=== PATIENT | female | born 1995 | race Caucasian/White ===

== ENCOUNTER 2017-08-18 09:54 | Inpatient (IN) | payer BC ==
[~2017-08-18] VITALS: Ht 160 cm; Wt 78.7 kg
[2017-08-18] MEDS: LACTATED RINGER'S 1,000 ML IV SCH (01:57)
[~2017-08-18 09:54] MED LIST: OXYTOCIN 30 UNITS/LR 500 ML BAG IV ONE; PREN-39 PO
[2017-08-18 10:23] VITALS: Ht 160 cm; Wt 78.7 kg
[2017-08-18 10:24] VITALS: BP 113/76; PULSE 81; RESP 18
[2017-08-18] MEDS ORDERED: LACTATED RINGER'S 1,000 ML IV SCH (10:27)
[2017-08-18] MEDS ORDERED: OXYTOCIN 30 UNITS/LR 500 ML IV SCH (10:30)
[2017-08-18] MEDS ORDERED: MISOPROSTOL 200 MCG TAB PR PRN ×2 (10:30→18:00)
[2017-08-18] MEDS ORDERED: METHYLERGONOVINE 0.2 MG INJ IM PRN ×2 (10:30→18:00)
[2017-08-18] MEDS ORDERED: CARBOPROST 250 MCG INJ IM PRN ×2 (10:30→18:00)
[2017-08-18] MEDS ORDERED: OXYTOCIN 30 UNITS/LR 500 ML IV PRN ×2 (10:30→18:00)
--- NOTE | 2017-08-18 11:18 | HP ---
Date/Time of Note Date/Time of Note DATE: 08/18/17 TIME: 11:16 OB - History Hx of Present Chief Complaint: scheduled c/s Estimated Due Date: Aug 25, 2017 : 3 Para: 1 Spontaneous : 1 Therapeutic : 0 Care: Good Care Ultrasounds: Normal mid trimester US Obstetrical Complications: None Medical Complications: None Past Family/Social History * Past Medical, Surgical, Family and Obstetric Histories reviewed from chart. GBS Status: Negative OB Admission Exam Vital Signs Vital Signs Vital Signs Date Time Temp Pulse Resp B/P Pulse Ox O2 Delivery O2 Flow Rate FiO2 08/18/17 10:24 98.1 81 18 113/76 Room Air Physical Exam HEENT: WNL Heart: Rhythm Normal Lungs: Clear, Equal Abdomen: WNL Extremities: Normal Reflexes: Normal Heart Rate: 130's Accelerations: Accelerations Present Decelerations: No Decelerations Varibility: Moderate OB Assessment/Plan Reason for admission: section Other Assessment: 39 weeks with previous c/s. Plan: Section MARQUIS DAO MD Aug 18, 2017 11:18
[2017-08-18] MEDS ORDERED: CEFAZOLIN 2 GM/50 ML (PMX) 50 ML IVPB ONE (12:04)
[2017-08-18] MEDS ORDERED: ONDANSETRON 4 MG INJ ONE (13:54)
[2017-08-18] MEDS ORDERED: OXYTOCIN 10 UNIT INJ ONE (13:54)
[2017-08-18] MEDS ORDERED: PHENYLephrine (100 MCG/ML) 5ML SYG ONE (13:55)
[2017-08-18] MEDS ORDERED: morphine SULFATE/PF (10 MG/10 ML) INJ ONE (13:55)
[2017-08-18] MEDS ORDERED: FENTAnyl 50 MCG/ML VIAL ONE (14:30)
--- NOTE | 2017-08-18 15:12 | SIPON ---
Date/Time of Note Date/Time of Note DATE: 08/18/17 TIME: 15:10 Operative Report Preoperative Diagnosis Previous c/s Postoperative Diagnosis Same Operation/Procedure Performed Repeat c/s Surgeon Marquis Dao MD nurseryman assistant Dr Wade Anesthesia: spinal Estimated blood loss: other (600 ml) Transfusion Required none Specimen Placenta Grafts/Implants none Complications none MARQUIS DAO MD Aug 18, 2017 15:12
--- NOTE | 2017-08-18 15:12 | SIPON ---
Date/Time of Note Date/Time of Note DATE: 08/18/17 TIME: 15:10 Operative Report Preoperative Diagnosis Previous c/s Postoperative Diagnosis Same Operation/Procedure Performed Repeat c/s Surgeon Marquis Dao MD golf player assistant Dr Wade Anesthesia: spinal Estimated blood loss: other (600 ml) Transfusion Required none Specimen Placenta Grafts/Implants none Complications none MARQUIS DAO MD Aug 18, 2017 15:12
--- NOTE | 2017-08-18 15:12 | SIPON ---
Date/Time of Note Date/Time of Note DATE: 08/18/17 TIME: 15:10 Operative Report Preoperative Diagnosis Previous c/s Postoperative Diagnosis Same Operation/Procedure Performed Repeat c/s Surgeon Marquis Dao MD care management assistant Dr Wade Anesthesia: spinal Estimated blood loss: other (600 ml) Transfusion Required none Specimen Placenta Grafts/Implants none Complications none MARQUIS DAO MD Aug 18, 2017 15:12
[2017-08-18] MEDS ORDERED: ONDANSETRON 4 MG INJ IV PRN (15:30)
[2017-08-18] MEDS ORDERED: DIPHENHYDRAMINE 50 MG INJ IV PRN (15:30)
[2017-08-18] MEDS ORDERED: NALOXONE (0.4 MG/ML) INJ IV PRN (15:30)
[2017-08-18] MEDS ORDERED: morphine 2 MG INJ IV PRN (15:30)
[2017-08-18] MEDS: KETOROLAC 30 MG INJ IV PRN ×2 (16:24→23:01)
[2017-08-18] MEDS ORDERED: OXYCODONE/ACETAMINOPHEN (5/325) TAB PO PRN ×2 (18:00)
[2017-08-18] MEDS ORDERED: LANOLIN 7 GM TUBE TOP PRN (18:00)
[2017-08-18 18:10] VITALS: BP 130/72; PULSE 81; RESP 17
[2017-08-18 19:30] VITALS: BP 122/74; PULSE 82; RESP 18
[2017-08-18] MEDS: OXYTOCIN 30 UNITS/LR 500 ML IV SCH (20:12)
[2017-08-18] MEDS: SENNA/DOCUSATE NA (8.6MG/50MG) TAB PO SCH (21:00)
[2017-08-19] VITALS (7 sets, daily range): BP systolic 103–115; BP diastolic 56–78; PULSE 76–100; RESP 16–20
[2017-08-19] MEDS: OXYTOCIN 30 UNITS/LR 500 ML IV SCH (00:33)
[2017-08-19] MEDS: LACTATED RINGER'S 1,000 ML IV SCH ×2 (01:57→09:50)
--- NOTE | 2017-08-19 02:15 | OPR ---
DATE OF OPERATION: 08/18/2017 PREOPERATIVE DIAGNOSES: at 39 weeks with previous section. POSTOPERATIVE DIAGNOSES: at 39 weeks with previous section. OPERATION PERFORMED: Repeat low transverse section. SURGEON: Marquis Petersen MD COMPOSITION STONE APPLICATOR: Dulce Wade MD ANESTHESIA: Spinal. ANESTHESIOLOGIST: Jason Zurita MD PROCEDURE: The patient was taken to the operating room and placed on the operating table. After begum ccessful spinal anesthesia was given, the patient was placed in supine position. The area was prepa red and draped in the usual sterile fashion. Spinal anesthesia was tested and was satisfactory. Us ing a scalpel, Pfannenstiel incision was made about 2 fingerbreadths above the symphysis pubis. The incision was carried to the fascia. The fascia was incised and extended bilaterally with Andres scis sors. Two Kochers were used to separate the fascia from the muscle. The muscle was dissected down to peritoneum. The peritoneum was secured with 2 Kellys and incised with Metzenbaum scissors. Usin g a scalpel, a small transverse incision was made on the lower segment of the uterus. Upon entering the uterine cavity, bandage scissors were inserted to extend the incision bilaterally, curved up. Baby was delivered from cephalic presentation. After suctioning clear of amniotic fluid, the baby w as handed off to the team in attendance. Apgars were 9 and 9. The placenta was delivered without difficulty. The uterus was closed with #1 Monocryl continuous locked. After assuring hemos tasis, both ovaries and tubes were inspected, looked normal. The peritoneal cavity was irrigated wi th warm saline. The peritoneum was closed with 2-0 Vicryl continuous. The fascia was closed with # 1 Vicryl continuous in 2 segments. The skin was closed with maryjane. ESTIMATED BLOOD LOSS: 600 mL. COUNTS: All counts were correct. Dictated By: MARQUIS PETERSEN MD GD/NTS Conf#: [id number] DID#: [id number]
[2017-08-19] MEDS ORDERED: INFLUENZA VIRUS VACCINE 0.5 ML SYG IM* ONE (09:00)
[2017-08-19] MEDS: SENNA/DOCUSATE NA (8.6MG/50MG) TAB PO SCH ×2 (09:50→21:07)
[2017-08-19] MEDS: IBUPROFEN 800 MG TAB PO SCH ×2 (14:12→22:07)
--- NOTE | 2017-08-19 18:54 | QN ---
Documentation Comment No complaint Afebrile VSS Abdomen soft ND POD #1 Stable Ambulate Advance diet MARQUIS DAO MD Aug 19, 2017 18:54
--- NOTE | 2017-08-19 18:54 | QN ---
Documentation Comment No complaint Afebrile VSS Abdomen soft ND POD #1 Stable Ambulate Advance diet MARQUIS DAO MD Aug 19, 2017 18:54
--- NOTE | 2017-08-19 18:54 | QN ---
Documentation Comment No complaint Afebrile VSS Abdomen soft ND POD #1 Stable Ambulate Advance diet MARQUIS DAO MD Aug 19, 2017 18:54
[2017-08-20 04:00] VITALS: BP 101/60; PULSE 79; RESP 18
[2017-08-20] MEDS: IBUPROFEN 800 MG TAB PO SCH ×3 (05:30→21:36)
[2017-08-20 08:00] VITALS: BP 117/75; PULSE 79; RESP 18
[2017-08-20] MEDS: SENNA/DOCUSATE NA (8.6MG/50MG) TAB PO SCH ×2 (09:19→20:43)
[2017-08-20 16:00] VITALS: BP 121/70; PULSE 87; RESP 17
[2017-08-20 19:30] VITALS: BP 125/77; PULSE 86; RESP 20
--- NOTE | 2017-08-20 19:53 | QN ---
Documentation Comment No complaint Afebrile VSS Abdomen soft ND Stable Continue present care. MARQUIS DAO MD Aug 20, 2017 19:53
--- NOTE | 2017-08-20 19:53 | QN ---
Documentation Comment No complaint Afebrile VSS Abdomen soft ND Stable Continue present care. MARQUIS DAO MD Aug 20, 2017 19:53
--- NOTE | 2017-08-20 19:53 | QN ---
Documentation Comment No complaint Afebrile VSS Abdomen soft ND Stable Continue present care. MARQUIS DAO MD Aug 20, 2017 19:53
[2017-08-21] MEDS: IBUPROFEN 800 MG TAB PO SCH (05:54)
[2017-08-21 08:00] VITALS: BP 129/71; PULSE 80; RESP 18
[2017-08-21] MEDS ORDERED: DIPHTH/TET/ACEL PERTUSS (ADULT) 0.5 ML VIAL IM* ONE (09:00)
[2017-08-21] MEDS: SENNA/DOCUSATE NA (8.6MG/50MG) TAB PO SCH (09:34)
--- NOTE | 2017-08-21 13:14 | DS ---
Date/Time of Note Date/Time of Note DATE: 08/21/17 TIME: 13:13 Obstetrical Discharge Record Final Diagnosis Final Diagnosis: Term delivered Section Section: Repeat Condition on Discharge Physical Assessment Voiding: Yes Bowel Movement: Yes Breast: Soft, non-tender, Filling Fundus: Firm Abdomen and Incision: Incision intact Calf Tenderness: No Patient Condition: Stable MARQUIS DAO MD Aug 21, 2017 13:14
== END 2017-08-21 16:17 | disposition home or self-care (01) | DRG 766 ==
LOC: L-D 09:54 → PP1 18:06
PROVIDERS: ADMIT Obstetrics & Gynecology; ATTEND Obstetrics & Gynecology
PROC: 3E0P3VZ Introduction of Hormone into Female Reproductive, Percutaneous Approach (ICD-10-PCS; 2017-08-18)
PROC: 10D00Z1 Extraction of Products of Conception, Low, Open Approach (ICD-10-PCS; principal; 2017-08-18 12:30)
DX: O34.211 Maternal care for low transverse scar from previous cesarean delivery (principal); Z37.0 Single live birth; Z3A.39 39 weeks gestation of pregnancy
CPT/HCPCS: 85025; 85610; 85730; 86592; 86850; 86900; 86901; 87340; 90686; 90715; 94760; 99464; J0690; J1200; J1885; J2274; J2370; J2405; J2590; J3010; J7120